=== PATIENT | female | born 1945 | race Two or more races ===

== ENCOUNTER 2023-08-04 07:00 | Inpatient (IN) | payer OTHER ==
[~2023-08-04] VITALS: Ht 154.9 cm; Wt 86.2 kg
[2023-08-04] MEDS ORDERED: CRESTOR20 MG PO (08:22)
[2023-08-04] MEDS ORDERED: METFORMIN HCL500 M3 PO (08:22)
[2023-08-04] MEDS ORDERED: COZAAR100 MG PO (08:23)
[2023-08-04] MEDS ORDERED: HUMALOG100 UNIT/2 (08:23)
[2023-08-04] MEDS ORDERED: TOPROL XL25 M1 PO (08:23)
[2023-08-04] MEDS ORDERED: JARDIANCE10 MG PO (08:24)
[2023-08-04] MEDS ORDERED: LANTUS SOL100 UNIT/1 (08:24)
[2023-08-04 09:07] LABS: URINE APPEARANCE Clear; URINE BILIRRUBIN Negative (NEGATIVE); URINE BLOOD Negative; URINE COLOR Yellow; URINE LEUKOCYTE Negative; URINE NITRATE Negative; URINE PROTEIN Negative (NEGATIVE)
[2023-08-04 09:11] LABS: HEMOGLOBIN 12.8 g/dL (12.0-15.00); MEAN CELL VOLUME 86.1 fL (80.00-100.00); MEAN CORPUSCULAR HEMOGLOBIN 28.2 pg (27.00-32.0); MEAN CORPUSCULAR HGB CONC 32.8 g/dl (32.0-36.0); PLATELET COUNT 213 K/uL (150-450); RED BLOOD COUNT 4.53 M/uL (4.00-6.00); RED CELL DISTRIBUTION WIDTH 14.8 % (11.5-14.5)
[2023-08-04 09:11] LABS: URINE BACTERIA 21.4 uL (0.0-1933); URINE EPITHELIAL CELLS 5.8 uL (0.0-38.8); URINE WBC 10.7 uL (0.0-23.2)
[2023-08-04 09:31] LABS: INR 0.98; PARTIAL THROMBOPLASTIN TIME 26.4 SECONDS (22.0-34.0); PROTHROMBIN TIME 10.3 SECONDS (9.0-11.5)
[2023-08-04 09:38] LABS: URINE GLUCOSE >=1000 MG/DL (NEGATIVE); URINE RBC 1.4 uL (0.0-20.8)
[2023-08-04 10:00] LABS: ALBUMIN 3.8 gm/dL (3.4-5.0); BILIRUBIN TOTAL 0.43 mg/dL (0.3-1.2); CALCIUM 9.5 mg/dL (8.5-10.1); CREATININE SERUM 1.26 mg/dL (0.55-1.02); GFR 40.86; GLOBULINA 3.4 G/DL (2.4-3.5); POTASSIUM 4.8 mEq/L (3.5-5.1); TOTAL PROTEIN 7.2 gm/dL (6.4-8.2)
[2023-08-11] MEDS ORDERED: MAXIMUM D3325 MCG (10:05)
[2023-08-11] MEDS ORDERED: ALENDRONATE SOD70 MG (10:05)
[2023-08-11] MEDS ORDERED: SYNTHROID50 MCG (10:36)
[2023-08-11] MEDS ORDERED: PANTOPRAZOLE SO40 MG (10:36)
[2023-08-11 12:11] LABS: HEMATOCRIT 36.4 % (36.0-45.00); HEMOGLOBIN 11.8 g/dL (12.0-15.00); RED BLOOD COUNT 4.21 M/uL (4.00-6.00)
[2023-08-12 07:09] LABS: HEMATOCRIT 34.3 % (36.0-45.00); HEMOGLOBIN 11.3 g/dL (12.0-15.00); MEAN CELL VOLUME 85.6 fL (80.00-100.00); MEAN CORPUSCULAR HEMOGLOBIN 28.2 pg (27.00-32.0); MEAN CORPUSCULAR HGB CONC 32.9 g/dl (32.0-36.0); PLATELET COUNT 191 K/uL (150-450); RED BLOOD COUNT 4.01 M/uL (4.00-6.00); RED CELL DISTRIBUTION WIDTH 14.7 % (11.5-14.5)
[2023-08-13] MEDS ORDERED: XARELTO10 MG PO (06:41)
[2023-08-13] MEDS ORDERED: INTEGRA PLUS C1 EACH PO (06:41)
[2023-08-13] MEDS ORDERED: OXYC1TAB9 PO (06:41)
[2023-08-13] MEDS ORDERED: BACTRIM DS TAB1 EACH PO (06:41)
[2023-08-13 06:52] LABS: HEMATOCRIT 34.9 % (36.0-45.00); HEMOGLOBIN 11.5 g/dL (12.0-15.00); MEAN CELL VOLUME 87.1 fL (80.00-100.00); MEAN CORPUSCULAR HEMOGLOBIN 28.8 pg (27.00-32.0); MEAN CORPUSCULAR HGB CONC 33.1 g/dl (32.0-36.0); PLATELET COUNT 204 K/uL (150-450); RED CELL DISTRIBUTION WIDTH 14.5 % (11.5-14.5)
== END 2023-08-13 12:48 | DRG 470 ==
LOC: SURG 08-11 07:00 → SURH 08-11 08:13 → O/R 08-11 08:13 → SURG 08-11 11:26 → SURH 08-11 11:37
PROVIDERS: ADMIT Orthopaedic Surgery Sports Medicine; ATTEND Orthopaedic Surgery Sports Medicine
PROC: 0SRC0J9 Replacement of Right Knee Joint with Synthetic Substitute, Cemented, Open Approach (ICD-10-PCS; principal; 2023-08-11 07:00)
DX: M17.11 Unilateral primary osteoarthritis, right knee (principal); I10 Essential (primary) hypertension; E03.9 Hypothyroidism, unspecified; E66.9 Obesity, unspecified; E11.9 Type 2 diabetes mellitus without complications